=== PATIENT | female | born 1965 | race Caucasian/White ===

== ENCOUNTER 2023-02-22 17:43 | Emergency (ER) | payer MEDICARE, BC, MEDICAID, SELFPAY ==
--- NOTE | ~2023-02-22 | CT_ITS ---
EXAMINATION: CT ANGIOGRAM HEAD CT ANGIOGRAM NECK CT HEAD WITHOUT CONTRAST CLINICAL INFORMATION: Reason for Exam right eye vision loss, pain COMPARISON: None. TECHNIQUE: Initial noncontrast manager of creative services imaging of the head and neck was performed. Noncontrast head CT was also performed. Test bolus sequences followed by intravenous administration 70 mL of Omnipaque 350. Helical imaging was performed in the axial plane from the aortic arch to the skull vertex. Delayed postcontrast imaging of the head was also performed. The data was processed at the senior cytotechnologist's workstation for generation of MIP sequences. Angled MIPs and volume rendered reformatted images were also generated at an offline 3D workstation. Stenoses are assessed in accordance with Monet et al. Quantification of Carotid Stenosis on CT Angiography. AJR 2006. 27(1):13-19. [address] CT examination was performed using dose optimization techniques as appropriate, variously including the following: *Automated exposure control *Adjustment of mA and/or kV according to patient size (this includes techniques or standardized protocols for targeted exams where dose is matched to indication/reason for exam; i.e. extremities or head) *Use of iterative reconstruction technique DLP: 2043.41 mGy-cm mGy-cm FINDINGS: CT HEAD: There is no evidence of acute intracranial hemorrhage. Minimal hyperdensity in left frontal lobe appears to be cortical. No abnormal intracranial enhancement is visualized. No mass-effect or ventricular shift is noted. No acute, territorial loss of gonsalez-white differentiation. The ventricles and sulci are appropriate in size and configuration for the patient's stated age. Periventricular and subcortical white matter hypodensity is nonspecific but likely represents chronic microvascular ischemic change. Intracranial atherosclerotic calcification is noted. No depressed calvarial fracture. Postsurgical changes in the paranasal sinuses with scattered moderate polypoid mucosal thickening that is partially visualized. Soft tissue in the external auditory canals, likely cerumen. The mastoid air cells are underpneumatized but essentially clear. CTA HEAD: Anterior circulation: Right internal carotid artery: Atherosclerosis without flow-limiting stenosis. Mandibular origin to a diminutive, but patent posterior communicating artery. Right middle cerebral artery: No hemodynamically significant stenosis. Right anterior cerebral artery: No hemodynamically significant stenosis. Left internal carotid artery: Atherosclerosis without flow-limiting stenosis. Diminutive posterior communicating artery. Left middle cerebral artery: No hemodynamically significant stenosis. Left anterior cerebral artery: No hemodynamically significant stenosis. Posterior circulation: Right vertebral artery: No hemodynamically significant stenosis. Left vertebral artery: No hemodynamically significant stenosis. Basilar artery: No hemodynamically significant stenosis. Right posterior cerebral artery: No hemodynamically significant stenosis. Left posterior cerebral artery: No hemodynamically significant stenosis. No high flow vascular malformation or significant aneurysmal dilatation is visualized. The major dural venous sinuses are grossly within normal limits given arterial technique. CTA NECK: Aortic arch: Normal anatomy. Atherosclerosis of the thoracic aorta and proximal great vessels. Motion degradation partially degrades accurate luminal evaluation but there is likely mild narrowing of the proximal left subclavian artery. Right common carotid artery: No hemodynamically significant stenosis. Right proximal internal carotid artery: Atherosclerosis at the right carotid bulb and proximal internal carotid artery with less than 50% luminal narrowing. Short segment retropharyngeal course. Right mid/distal internal carotid artery: No hemodynamically significant stenosis. Left common carotid artery: Atherosclerosis without flow-limiting stenosis. Left proximal internal carotid artery: Atherosclerosis of the carotid bulb and proximal internal carotid artery with less than 50% luminal narrowing. Short segment retropharyngeal course. Left mid/distal internal carotid artery: No hemodynamically significant stenosis. Right vertebral artery: Motion degradation at the right vertebral artery origin with apparent stenosis is favored to be artifactual. The remaining cervical course is without flow-limiting stenosis. Left vertebral artery: Motion degradation at the origin. Dominant. No flow-limiting stenosis in the cervical course. CT NECK: Emphysematous changes in the lung apices. Calcified granulomas in the left upper lobe. Additional subpleural micronodular is noted. Paranasal sinus mucosal thickening with evidence of prior endoscopic sinus surgery. Multilevel degenerative changes of the cervical spine. Multilevel disc osteophyte complexes indent the ventral thecal sac with areas of moderate canal stenosis. CT/CT angio head neck IMPRESSION: CT HEAD: No acute intracranial hemorrhage or territorial loss of gonsalez-white differentiation. CTA NECK: No hemodynamically significant stenosis. Multilevel degenerative changes of the cervical spine with areas of probable moderate canal stenosis CTA HEAD: No proximal vessel occlusion or high-grade stenosis. IMPRESSION: Unremarkable examination
[2023-02-22 18:55] VITALS: BP 99/73; PULSE 84; RESP 20; TEMP 36.5; O2SAT 100; BMI 22.0
--- NOTE | 2023-02-22 18:57 | ED_ITS ---
HPI - General Adult General Chief complaint: Eye Problems Stated complaint: cant see out of R eye Time Seen by Provider: 02/22/23 20:15 Source: patient, family, RN notes reviewed and old records reviewed Mode of arrival: ambulatory Limitations: no limitations History of Present Illness HPI narrative: 57 emily old female presents with right eye blurriness for 2 days. She states she was showering when she first noticed she could not see clearly out of her right eye. She also reports redness and pain in the eye. She states she was seen at her rest home and was told she had conjunctivitis. She saw her PCP who told her to report to the ED. She states the pain has resolved today but the blurriness and redness persists. She has no history of vision difficulties or changes in the past. Patient does not wear contacts or glasses. She reports that her only medical history is asthma and paranoid schizophrenia Related Data Previous Rx's Medication Instructions Recorded erythromycin 5 mg/gram (0.5 %) eye 1 appl ophthalmic-Right TID #3.5 02/22/23 ointment grams Allergies Allergy/AdvReac Type Severity Reaction Status Date / Time cat dander Allergy hives/wheez Verified 02/22/23 18:54 ing Review of Systems 2 Constitutional: Constitutional: Denies chills and Denies fever(s) Eyes: Eyes: Reports blurry vision (right eye), Reports change in vision (right eye), Denies eye discharge, Reports eye pain (right eye) and Reports other (right eye redness) PMFSH Social History Social History Smoked in Last 30 Days: No Advance Directives: Yes Advance Directives Information Provided: No Advance Directives on File: No Physical Exam ED Vital Signs: Vital Signs - 24 hr 02/22/23 18:55 02/23/23 00:15 Temperature 97.7 F 97.2 F Pulse Rate 84 63 Respiratory Rate 20 17 Blood Pressure 99/73 134/73 Pulse Oximetry 100 97 Oxygen Delivery Method Room Air Room Air BMI result Body Mass Index 22.0 Const General: comfortable and no acute distress Orientation/consciousness: patient oriented x3 Limitations: no limitations HENMT Head: Yes normocephalic and Yes atraumatic Eyes Other: Intra-ocular pressure in the right eye averaging 7 mmHg measured with Sanjiv-Pen Bedside ultrasound completed by myself with my attending, Dr. Kenton did not show any obvious retinal detachment or evidence of vitreous hemorrhage. Periorbital: periorbital findings normal Eyelids: Yes eyelids normal Conjunctivae: conjunctival abnormal right conjunctival injection; Negative for conjunctival icterus, without chemosis, without pallor and without pterygia Sclerae: scleral abnormal right scleral injection; without exudates, without foreign bodies and without hemorrhages Corneas: corneas abnormal on the right (Patient has moderate opacification mostly the top half of the cornea overlying the iris) fluorescein used and fluorescein used (increased fluorescein uptake to a large area above the right pupil ) Pupils: Equal, round and reactive pupils present EOM: EOMs intact bilaterally Direct Ophthalmoscopy: no photophobia, no papilledema and other (Funduscopic exam was somewhat limited due to background lighting) Resp Effort & Inspection: normal respiratory effort and able to speak in complete sentences Skin General skin exam: no rashes or lesions noted and elasticity normal Neuro General: patient oriented x3 Cranial nerves: Yes Equal, round and reactive pupils present Medications Administered Discontinued Medications Generic Name Dose Route Start Last Admin Trade Name Freq PRN Reason Stop Dose Admin Fluorescein Sodium 1 strip 02/22/23 21:05 02/22/23 21:10 Fluorescein Sodium Strip EYE-RIGHT 02/22/23 21:06 1 strip ONCE ONE Administration Iohexol 70 ml 02/23/23 00:13 02/23/23 00:14 Iohexol 350 Mg/Ml 100 Ml Infus..Btl IV 02/23/23 00:14 70 ml ONCE ONE Administration Tetracaine HCl 1 drop 02/22/23 21:05 02/22/23 21:10 Tetracaine Hcl/Pf 0.5% Oph Vanessa 4 Ml Drops EYE-RIGHT 02/22/23 21:06 1 drop ONCE ONE Administration Medical Decision Making Medical Decision Making [facility] Narrative: 57-year-old female presents for evaluation of right eye pain and redness starting 2 days ago. As of today the patient reports that her eye pain has improved although her vision continues to deteriorate. See much other than shadows out of the right eye. Her visual acuity testing she was unable to read any letters with her right eye monocular early. There is no evidence of vitreous hemorrhage or retinal detachment on ultrasound. It is possible the patient's symptoms are related to conjunctivitis and a large corneal abrasion not is clouding her visual field. In labs and CT angiography to rule out intracranial mass compressing the optic are or large arterial occlusion not feel this is less likely. Differential Diagnosis Differential Diagnoses: The differential diagnosis associated with the presentation includes acute angle closure glaucoma open angle glaucoma cataract conjunctivitis uveitis corneal abrasion Consult Healthcare Provider Management of the patient was discussed with: Retail Sales Teammate (Dr Ag, ophthalmology recommends of ophthalmic topical antibiotics only. He will see her tomorrow) Lab Data 02/22/23 21:54 02/22/23 21:54 Labs: Lab Results 02/22/23 Range/Units 21:54 WBC 12.3 H (4.8-10.8) X10*3/uL RBC 4.29 (4.20-5.50) X10*6/uL Hgb 13.0 (12.0-16.0) g/dl Hct 38.7 (37.0-47.0) % MCV 90.2 (80.0-98.0) fL MCH 30.3 (27.0-33.0) pg MCHC 33.6 (31.0-35.0) g/dl RDW 14.6 (11.0-16.0) % Plt Count 260 (160-400) X10*3/uL MPV 8.9 L (9.4-12.3) fL Immature Gran % (Auto) 0.4 (0.0-0.4) % Neut % (Auto) 67.3 (45-73) % Lymph % (Auto) 21.8 (20-40) % Mcdonough % (Auto) 8.8 (2-11) % Eos % (Auto) 1.5 (0-4) % Baso % (Auto) 0.2 (0-2) % Lymph # (Auto) 2.7 (1.2-4.9) X10*3/uL Mcdonough # (Auto) 1.1 (0.1-1.2) X10*3/uL Eos # (Auto) 0.2 (0.0-0.4) X10*3/uL Baso # (Auto) 0.0 (0.0-0.2) X10*3/uL Abs Immat Gran (auto) 0.05 H (0.00-0.03) X10*3/uL Absolute Neuts (auto) 8.2 (2.0-8.3) x10*3/uL Absolute Nucleated RBC 0.000 (0.0-0.012) X10*3/uL Nucleated RBC % (auto) 0.0 (0.0-0.2) /100WBC Sodium 136 (135-145) mmol/L Potassium 4.0 (3.3-5.1) mmol/L Chloride 105 (96-108) mmol/L Carbon Dioxide 24 (22-29) mmol/L Anion Gap 11 L (12-20) BUN 10 (9-16) mg/dL Creatinine 0.62 (0.5-1.4) mg/dL Estim Creat Clear Calc 80.8 Estimated GFR > 60 Random Glucose 117 H (60-115) mg/dL Calcium 8.8 (8.4-10.2) mg/dL Discharge Plan Discharge Clinical Impression: Corneal abrasion Patient Disposition: Home, Self-Care Instructions: Corneal Abrasion (ED) Additional Instructions: You have a large corneal abrasion on exam. Your intra-ocular pressure is within normal limits There is no evidence of retinal detachment or vitreous hemorrhage Follow-up with Ophthalmology, Dr. Ag tomorrow morning by calling his office at approximately 8:00 a.m. In the meantime apply the topical antibiotic 3 times daily Prescriptions: New erythromycin 5 mg/gram (0.5 %) ointment 1 appl ophthalmic-Right TID Qty: 3.5 0RF Referrals: Yony Ag [Physician] - (right eye pain, redness, vision loss)
[2023-02-22] MEDS: Tetracaine HCl/PF 0.5% Oph Sol 4 ML DROPS 1 DROP EYE-RIGHT (21:10)
[2023-02-22] MEDS: Fluorescein Sodium STRIP 1 STRIP EYE-RIGHT (21:10)
[2023-02-22 22:01] LABS: MANUAL DIFF FLAG NO
[2023-02-22 22:03] LABS: Basophils Percent Auto 0.2 % (0-2); Eosinophils Absolute Auto 0.2 X10*3/uL (0.0-0.4); Eosinophils Percent Auto 1.5 % (0-4); Hematocrit 38.7 % (37.0-47.0); Imm Gran Abs Auto 0.05 X10*3/uL (0.00-0.03); Imm Gran Pct Auto 0.4 % (0.0-0.4); Lymphocytes Absolute Auto 2.7 X10*3/uL (1.2-4.9); Lymphocytes Percent Auto 21.8 % (20-40); Mean Corpuscular HGB Conc 33.6 g/dl (31.0-35.0); Mean Corpuscular Hemoglobin 30.3 pg (27.0-33.0); Mean Corpuscular Volume 90.2 fL (80.0-98.0); Mean Platelet Volume 8.9 fL (9.4-12.3); Monocytes Absolute Auto 1.1 X10*3/uL (0.1-1.2); Monocytes Percent Auto 8.8 % (2-11); Neutrophils Absolute Auto 8.2 x10*3/uL (2.0-8.3); Neutrophils Percent Auto 67.3 % (45-73); Platelet Count 260 X10*3/uL (160-400); Red Blood Count 4.29 X10*6/uL (4.20-5.50); Red Cell Distribution Width 14.6 % (11.0-16.0); White Blood Count 12.3 X10*3/uL (4.8-10.8)
[2023-02-22 22:17] LABS: Anion Gap 11 (12-20); Blood Urea Nitrogen 10 mg/dL (9-16); Calcium 8.8 mg/dL (8.4-10.2); Carbon Dioxide 24 mmol/L (22-29); Chloride 105 mmol/L (96-108); Creatinine Clr Calc Pharmacy 80.8; Estimated Glomerular Filt Rate > 60; Glucose Random 117 mg/dL (60-115); Sodium 136 mmol/L (135-145)
[2023-02-23] MEDS: iohexoL 350 MG/ML 100 ML INFUS..BTL 70 ML IV (00:14)
[2023-02-23 00:15] VITALS: BP 134/73; PULSE 63; RESP 17; TEMP 36.2; O2SAT 97
[2023-02-23] MEDS: Erythromycin Base 0.5% Oph Oin 1 GM TUBE 1 CM EYE-RIGHT (01:40)
== END 2023-02-23 01:47 | disposition home or self-care (01) ==
PROVIDERS: Physician Assistant; Emergency Provider Emergency Medicine; PCP Family Medicine
DX: S05.01XA Injury of conjunctiva and corneal abrasion without foreign body, right eye, initial encounter (principal); H54.61 Unqualified visual loss, right eye, normal vision left eye; X58.XXXA Exposure to other specified factors, initial encounter; Y93.9 Activity, unspecified; Y92.9 Unspecified place or not applicable; Y99.9 Unspecified external cause status; Z79.899 Other long term (current) drug therapy
CPT/HCPCS: 36415; 70496; 70498; 80048; 85025; 99284; Q9967